=== PATIENT | female | born 1940 | race Caucasian/White ===

== ENCOUNTER 2017-07-31 08:48 | Emergency (ER) | payer MEDICARE ==
[~2017-07-31 08:48] MED LIST: AMOX875T20 OR; ASPI81 PO; GEMF600T PO; LISI10TA PO; LOVA1TAB47 PO; TAB-TAB PO; TOPR50TA PO
[2017-07-31 09:02] VITALS: BP 192/92; PULSE 62; RESP 16; TEMP 97.7; O2SAT 96
[2017-07-31] MEDS ORDERED: METO100T PO (09:12)
[2017-07-31] MEDS ORDERED: LISI10TA3 PO (09:12)
[2017-07-31] MEDS ORDERED: LOVA20TA PO (09:12)
[2017-07-31] MEDS ORDERED: TETANUS/DIPHTHERIA TOXOID ADULT 0.5 ML VIAL IM ONE (09:45)
[2017-07-31] MEDS ORDERED: BACT800T5 PO (09:53)
--- NOTE | 2017-07-31 09:53 | PD ---
HPI Chief Complaint: Injury Time Seen by Provider: 09:27 Travel History International Travel<30 days: No Contact w/Intl Traveler<30days: No Traveled to known affect area: No History of Present Illness HPI This is a 77-year-old female here with the skin injury to the right forearm and concern of possible infection. 2 days ago she sustained a skin tear caused by a nail protruding from a fence board. She has been cleaning the area daily with soap and water and peroxide. This morning she noticed the area was slightly swollen and red. She reports minimal pain. No fever chills. No drainage from the site. Symptom severity is moderate. No aggravating or alleviating factors. PFSH Past Medical History Blood Disorders: No Cancer: No Cardiovascular Problems: No Coronary Artery Disease: Yes Diabetes: No Diminished Hearing: Yes (lt ear) Endocrine: No Glaucoma: No Genitourinary: No Hepatitis: No Hiatal Hernia: No Hypertension: Yes Immune Disorder: No Musculoskeletal: No Neurologic: No Psychiatric: No Respiratory: No Radiation Therapy: No Thyroid Disease: No ?: Not Menopausal: Yes Past Surgical History Abdominal Surgery: No Cardiac Surgery: No Ear Surgery: No Endocrine Surgery: No Eye Surgery: Yes (EXTRACTION CATARACT RIGHT) Genitourinary Surgery: No Gynecologic Surgery: No Joint Replacement: No Oral Surgery: No Pacemaker: No Thoracic Surgery: No Other Surgery: Yes (TORD DE CALIS? A CHILD) Social History Alcohol Use: Yes (2/ day- [employer]) Tobacco Use: No (QUIT 20-25 YEARS AGO) Substance Use: Yes Allergies-Medications (Allergen,Severity, Reaction): Coded Allergies: No Known Allergies (Verified Adverse Reaction, Unknown, 07/31/17) Reported Meds & Prescriptions Reported Meds & Active Scripts Active Reported Lisinopril 10 Mg Tab 10 Mg PO DAILY Lovastatin 20 Mg Tab 20 Mg PO DAILY Metoprolol Tartrate 100 Mg Tab 100 Mg PO BID Review of Systems Except as stated in HPI: all other systems reviewed are Neg General / Constitutional: No: Fever Physical Exam Narrative GENERAL: Alert and well-appearing 77-year-old female SKIN: Warm and dry. 1 cm V-shaped skin tear to the right forearm dorsal aspect with approximately 3 cm surrounding mild induration and mild erythema. The area is mildly tender when palpated. No fluctuance. No lymphangitis. HEAD: Normocephalic. EYES: No injection or drainage. NECK: Supple CARDIOVASCULAR: Regular rate and rhythm RESPIRATORY: Breath sounds equal bilaterally. No accessory muscle use. GASTROINTESTINAL: Abdomen soft, non-tender, nondistended. MUSCULOSKELETAL: No cyanosis, or edema. RUE: See skin note above. No bony tenderness. No deformity palpated in the subcutaneous skin near the wound. No lymphangitis. She has normal range of motion. Palpable distal pulses. Normal sensation. Brisk cap refill. Data Data Last Documented VS Vital Signs Date Time Temp Pulse Resp B/P (MAP) Pulse Ox O2 Delivery O2 Flow Rate FiO2 07/31/17 09:02 97.7 62 16 192/92 (125) 96 Orders Orders Tetanus/Diphtheria Tox Adult (Tetanus/Di (07/31/17 09:45) MDM Medical Decision Making Medical Screen Exam Complete: Yes Emergency Medical Condition: Yes Differential Diagnosis Wound infection, skin tear, abscess/cellulitis Narrative Course This is a 77-year-old female here with mildly infected wound to the right forearm. She is nontoxic appearing. She will be treated with Bactrim. Instructed to follow-up with her primary doctor. Diagnosis Primary Impression: Wound infection Referrals: Primary Care Physician Additional Instructions: Antibiotics as directed. Continue to cleanse the area Follow-up with your primary doctor for recheck Scripts Sulfamethoxazole-Trimethoprim (Bactrim DS) 800-160 Mg Tab 1 TAB PO BID for Infection, #20 TAB 0 Refills Prov: Jennifer Baumann 07/31/17 Disposition: 01 DISCHARGE HOME Condition: Stable Jennifer Baumann July 31, 2017 09:53
== END 2017-07-31 10:02 | disposition home or self-care (01) ==
LOC: PHEFT 08:48
DX: S50.911A Unspecified superficial injury of right forearm, initial encounter (principal); L08.9 Local infection of the skin and subcutaneous tissue, unspecified; W45.0XXA Nail entering through skin, initial encounter; I25.10 Atherosclerotic heart disease of native coronary artery without angina pectoris; I10 Essential (primary) hypertension; Z23 Encounter for immunization; Z87.891 Personal history of nicotine dependence
CPT/HCPCS: 90471; 90714